=== PATIENT | female | born 1990 | race Caucasian/White ===

== ENCOUNTER 2019-06-07 08:13 | Inpatient (IN) ==
[2019-06-07] MEDS ORDERED: NALOXONE HCL 1 MG/1 ML SYRG IV PRN (09:36)
[2019-06-07] MEDS ORDERED: ONDANSETRON HCL/PF 2 MG/ML VIAL IV PRN (09:36)
[2019-06-07] MEDS ORDERED: BUPIVACAINE HCL/0.9 % NACL/PF 250 ML EP PRN (09:36)
[2019-06-07] MEDS ORDERED: RINGER'S SOLUTION,LACTATED 1,000 ML IV PRN (09:42)
[2019-06-07] MEDS ORDERED: ONDANSETRON 4 MG TAB.RAPDIS PO PRN (09:42)
[2019-06-07] MEDS ORDERED: OXYTOCIN/DEXTROSE 5%-WATER 30 UNITS/500 ML BAG IV ONE ×2 (09:42→12:47)
[2019-06-07] MEDS ORDERED: fentaNYL CITRATE/PF 50 MCG/ML AMPUL IT SCH (09:45)
[2019-06-07] MEDS: RINGER'S SOLUTION,LACTATED 1,000 ML IV ONE ×2 (10:13→10:33)
--- NOTE | 2019-06-07 10:47 | ANES ---
Post Anesthesia Discharge - Transfer of Care Transfer of Care handoff given to nurse: Yes - Anesthesia Post Op Note Anesthesia Post Op Note: Care transferred to OB RN
--- NOTE | 2019-06-07 10:50 | ANES ---
Anesthesia Pre Procedure Eval HOME MEDICATIONS NK 04/23/19 [Last Taken Unknown] Allergies/Adverse Reactions: Allergies Allergy/AdvReac Type Severity Reaction Status Date / Time No Known Allergies Allergy Verified 06/07/19 09:37 - Planned Procedure Planned Procedure: Labor Medication List Reviewed:: Yes Allergies Verified: Yes Medical History (Last Reviewed 06/07/19 @ 09:02 by Chelly Baron RN) No pertinent family history Surgical History (Last Reviewed 06/07/19 @ 09:03 by Chelly Baron RN) No pertinent past surgical history Family History (Last Reviewed 06/07/19 @ 09:03 by Chelly Baron RN) Other Breast cancer - Family Anesthesia History Family History:: no untoward family reactions to anesthesia - Airway/Neck/Teeth Within Normal Limits:: Yes Teeth Condition: intact Neck Exam: full range of motion Mallampatti Score: 2 Thyromental (T-M) distance: > 6 cm Mandibulo Hyoid distance: > 3 cm - Respiratory Respiratory Physical: lungs clear Smoking Status: Current every day smoker Discussed smoking cessation including day of surgery: Yes Sleep Apnea currently treated: No Sleep Apnea by current assessment: No - Cardiovascular Tolerate Activity: Good Heart Sounds: S1 & S2, Regular - Gastrointestinal NPO since: MN - Anesthesia Assessment and Plan ASA Class: PS, II, E Anesthesia Type Plan: Epidural Planned difficult intubation/equipment available: No
--- NOTE | 2019-06-07 10:50 | ANES ---
Post Anesthesia Assessment - Vital Signs Airway Patency: Normal - Mental Status Level Of Consciousness: Awake - Pain Level Pain Score: 0 - N/V Assessment Nausea/Vomiting Presence: None Dehydration:: No
--- NOTE | 2019-06-07 10:52 | ANES ---
Anesthesia Procedure Note Procedure Note: ANESTHESIA PROCEDURE NOTE Date of Procedure: 06/07/2019 Time of procedure: 1020. Performed by: Solomon Banks CRNA Carpet Cleaning Technician: None. Preprocedure diagnosis: Active labor. Post procedure diagnosis: Same. Procedure: Insertion of labor epidural. Indications: The patient is a 28-year-old multigravida female in active labor requesting labor epidural for pain management. Findings: See below. Details of the procedure: The patient was placed in a sitting position. Back was prepped with DuraPrep. Patient was then draped in a sterile fashion. Lidocaine 1% was infiltrated to the skin and subcutaneous tissues at the level of the L3 4 interspace. The epidural space was identified using a 18-gauge Tuohy needle with [id number] technique. 20 mcg fentanyl was given intrathecally using a 27 ga. spinal needle. Epidural catheter was inserted without difficulty. Negative test dose was elicited using 5 mL of 1.5% preservative-free lidocaine plus epinephrine 1 200,000. The epidural catheter was then taped and secured in place. EBL: Minimal. Fluids: N/A. Specimen: N/A. Post procedure condition: The patient tolerated the procedure well. No complications were noted. Thank you for this consultation. Browne CRNA
--- NOTE | 2019-06-07 11:00 | HP ---
Chief Complaint - Chief Complaint Date of Service: 06/07/19 Time of Service: 11:00 Chief Complaint: Labor History of Present Illness: 28 year old at 39w 0d who presented to labor and delivery in labor. She reported regular contractions. Denied vb or lof. Fetus is active. No other concerns. The patient has had limited care in [place] and her dates were by a 33w 6d ultrasound. That ultrasound reported that the lateral ventricles were abnormal and there was suboptimal visualization of several structures. Subsequent level 2 ultrasound did not show any abnormalities. The is complicated by smoking and metaamphetamine use. The patient is Rh negative and GBS negative Medical History (Last Reviewed 06/07/19 @ 12:33 by Vanessa Gonzales MD) No pertinent family history Surgical History: Surgical History (Last Reviewed 06/07/19 @ 12:33 by Vanessa Gonzales MD) No pertinent past surgical history Family History: Family History (Last Reviewed 06/07/19 @ 12:33 by Vanessa Gonzales MD) Other Breast cancer Social History: (Last Reviewed 06/07/19 @ 12:33 by Vanessa Gonzales MD) Tobacco: Smoking Status: Current every day smoker Smoking cigarettes per day: 10 Alcohol: alcohol intake: never Substance Use: substance use type: does not use Review Of Systems (GEN) - Review of Systems Generalized/Overall Review: Present: No Symptoms Reported Genitourinary: Present: Other - regular ctx Misc: All systems neg except as marked Immunizations: IMMUNIZATION HX Immunizations Up to Date Yes History of Influenza Vaccine No Hx Pneumococcal Vaccination No Allergies/Adverse Reactions: Allergies Allergy/AdvReac Type Severity Reaction Status Date / Time No Known Allergies Allergy Verified 06/07/19 09:37 Home Medications: HOME MEDICATIONS NK 04/23/19 [Last Taken Unknown] Exam - Exam Constitutional: Present: Alert, Oriented x3, Cooperative, No distress ENT Exam: Present: hearing grossly normal Eye Exam: bilateral eye: normal inspection Neck: Present: normal inspection Back Exam: Present: normal inspection Breasts: Present: Exam deferred Respiratory: Present: lungs clear, normal breath sounds, no respiratory distress Cardiovascular/Chest: Present: regular rate, rhythm Abdomen: Present: soft, nontender, nondistended /Rectal: Present: Other - 8-9/90/-1 Extremity: Present: non-tender, no calf tenderness Skin Exam: Present: normal color, warm/dry, no cyanosis Appearance: Present: appropriate appearance, appropriate insight Eye contact: Present: cooperative, good eye contact, normal speech Thoughts: Present: normal thought pattern Assessment/Plan - Narrative Narrative: 28 year old at 39w 0d 1. Labor. AROM done and fluid was bloody. Pitocin PRN 2. [place]-amphetamine abuse: UDS positive on admission to L&D 3. GBS negative: prophylaxis not indicated 4. Insufficient care 5. Smoker
[2019-06-07 11:41] LABS: Cocaine Ur Negative (NEGATIVE); Urine Barbiturate Negative (NEGATIVE); Urine Benzodiazepines Negative (NEGATIVE); Urine Opiates Negative (NEGATIVE); Urine PCP Negative (NEGATIVE); Urine THC Negative (NEGATIVE)
[2019-06-07] MEDS ORDERED: HYDROCORTISONE 30 APPL TUBE TP PRN (12:47)
[2019-06-07] MEDS ORDERED: diphenhydrAMINE HCL 25 MG CAPSULE PO PRN (12:47)
[2019-06-07] MEDS ORDERED: GLYCERIN/WITCH HAZEL LEAF 40 APPL BOX TP PRN (12:47)
[2019-06-07] MEDS ORDERED: BISACODYL 10 MG SUPP.RECT RC PRN (12:47)
[2019-06-07] MEDS ORDERED: BENZOCAINE/MENTHOL 81 SPRAY CAN TP PRN (12:47)
[2019-06-07] MEDS ORDERED: ACETAMINOPHEN 500 MG TABLET PO PRN (12:47)
[2019-06-07] MEDS ORDERED: SENNOSIDES 8.6 MG TABLET PO PRN (12:47)
--- NOTE | 2019-06-07 12:47 | OR ---
Operative Report - Dictated Report Narrative: Date of delivery: 06/07/2019 Time of delivery: 1221 Gender: male APGARS: 6/8 weight: 3097 grams Procedure: Description of the procedure: The patient is a 28 year old at 39w 0d who presented in labor. She progressed to 8-9 cm from 1.5 cm on admission. AROM was done for bloody fluid. Subsequently, pitocin was started for augmentation of labor and the patient progressed to complete dilation. She delivered a viable male in DANNIE presentation. A nuchal cord was noted which could not be reduced and thus it was cut at the perineum. A second loop of the nuchal cord was noted and this was reduced prior to delivery. The shoulders delivered without any difficulty followed by the rest of the . The was taken to the warmer for resuscitation. Cord blood was collected. The placenta delivery by expression and appeared intact. A large clot delivered prior to the placenta which is suspicious for placental abruption especially in light of the clinical history. There were no lacerations. EBL: 50 mL Complications: none History for MU Definition: * The number of deliveries resulting in a live the patient experienced prior to current hospitalization * The previous delivery of live twins or any live multiple gestation is considered one live event. *If primagravida or nulliparous is documented select zero for the number of previous live births. Live Events: 1
[2019-06-07] MEDS ORDERED: RHO(D) IMMUNE GLOBULIN 1,500 UNIT SYRINGE IM ONE (19:13)
[2019-06-07] MEDS: DOCUSATE SODIUM 100 MG CAPSULE PO SCH (22:07)
[2019-06-07] MEDS: IBUPROFEN 800 MG TABLET PO PRN (23:28)
[2019-06-08] MEDS: DOCUSATE SODIUM 100 MG CAPSULE PO SCH ×2 (09:23→21:36)
[2019-06-08 09:25] LABS: Hep C Ab NON-REACTIVE (NON-REACTIVE)
--- NOTE | 2019-06-08 12:50 | PN ---
Subjective - Date and Time Seen Date: 06/08/19 Time: 11:30 Subjective Narrative: Patient without complaints Objective Objective Narrative: See vital signs - Review of Systems Generalized/Overall Review: Reports: No Symptoms Reported Misc: All systems neg except as marked - Vitals Vitals: Last Vital Signs Temp 36.7 C 06/08/19 07:03 Pulse 92 06/08/19 07:03 Resp 18 06/08/19 07:03 BP 110/64 06/08/19 07:03 Pulse Ox 97 06/08/19 07:03 - Exam Constitutional: Present: Alert, Oriented x3, Cooperative, No distress ENT Exam: Present: hearing grossly normal Abdomen: Present: soft, nontender, nondistended - fundus is firm Extremity: Present: non-tender, no calf tenderness Skin Exam: Present: normal color, warm/dry, no cyanosis Appearance: Present: appropriate appearance, appropriate insight Eye contact: Present: cooperative, good eye contact, normal speech Thoughts: Present: normal thought pattern Cauti Physician Documentation - Urinary Catheter Management Urethral (Yin) Urethral Indwelling: No Date of Insertion: 06/07/19 Time of Insertion: 11:00 Assessment/Plan Plan Narrative: PPD 1 s/p Doing well Discharge tomorrow
[2019-06-08] MEDS: IBUPROFEN 800 MG TABLET PO PRN (15:31)
[2019-06-09 08:05] VITALS: BP 112/66
[2019-06-09] MEDS: DOCUSATE SODIUM 100 MG CAPSULE PO SCH (09:52)
--- NOTE | 2019-06-09 11:55 | PN ---
Subjective - Date and Time Seen Date: 06/09/19 Time: 11:53 Subjective Narrative: Patient without complaints Objective Objective Narrative: See vital signs - Review of Systems Generalized/Overall Review: Reports: No Symptoms Reported Misc: All systems neg except as marked - Vitals Vitals: Last Vital Signs Temp 37.1 C 06/09/19 08:05 Pulse 108 H 06/09/19 08:05 Resp 18 06/09/19 08:05 BP 112/66 06/09/19 08:05 Pulse Ox 96 06/09/19 08:05 - Exam Constitutional: Present: Alert, Oriented x3, Cooperative, No distress Abdomen: Present: soft, nontender, nondistended - fundus is firm Extremity: Present: non-tender, no calf tenderness Skin Exam: Present: normal color, warm/dry, no cyanosis Appearance: Present: appropriate appearance, appropriate insight Eye contact: Present: cooperative, good eye contact, normal speech Thoughts: Present: normal thought pattern Cauti Physician Documentation - Urinary Catheter Management Urethral (Yin) Urethral Indwelling: No Date of Insertion: 06/07/19 Time of Insertion: 11:00 Assessment/Plan Plan Narrative: PPD 2 s/p Doing well Detailed discharge instructions given Follow-up in 6 weeks or sooner for any other concerns
== END 2019-06-09 16:15 | disposition home or self-care (01) | DRG 806 ==
LOC: OB 08:13
PROVIDERS: ADMIT Obstetrics & Gynecology; ATTEND Obstetrics & Gynecology
DX: O26.893 Other specified pregnancy related conditions, third trimester; Z37.0 Single live birth; Z3A.39 39 weeks gestation of pregnancy; P04.2 Newborn affected by maternal use of tobacco; F15.90 Other stimulant use, unspecified, uncomplicated; O99.324 Drug use complicating childbirth; Z67.41 Type O blood, Rh negative; O45.93 Premature separation of placenta, unspecified, third trimester
CPT/HCPCS: 36415; 59025; 80307; 85460; 86803; 88307; 88888; J2790